=== PATIENT | male | born 1985 ===

== ENCOUNTER → 2025-03-13 13:00 | Outpatient (BNV) | payer OTHER, SELFPAY | PROVIDERS: Visit Provider Internal Medicine | DX: I49.3 Ventricular premature depolarization (principal); R00.0 Tachycardia, unspecified; I49.49 Other premature depolarization | CPT/HCPCS: 93248 ==

== ENCOUNTER → 2025-03-13 13:00 | Outpatient (REF) | payer OTHER, SELFPAY ==
--- NOTE | 2025-03-13 | HM_ITS ---
* Total monitoring time 14 days. * Underlying rhythm is sinus with an average rate of 70/Min. * Rare supraventricular ectopy. * Rare ventricular ectopy. * No significant pauses or high-grade AV blocks. * Irregular heart rate in patient diary correlates with sinus tachycardia, idioventricular rhythm. MTDD
--- OUTSIDE RECORDS SUMMARY | 2025-03-18 18:25 | XMS_ITS | Encounter Summary ---
Author Organization [facility] Address [address] [place] [address] [place] [address] Phone Care Team Providers Care Plumber'S Helper Name Role Phone CyndyNan Colette COLON Primary Care Provider [phone] Encounter Details Date Type Department Care Team (Late st Contact Info) Description 08/01/2023 Prep for Surgery [facility] [address] [place] [address] Vanda Nunez MD [address] [facility], 2nd [place] [address] [email or web address] Mass of anus (Primary Dx) Social History Tobacco Use Types Packs/Day Years Used Date Smoking Tobacco: Never Smokeless Tobacco: Never Alcohol Use Standard Drinks/Week Comments Yes 0 (1 standard drink = 0.6 oz pur e alcohol) 6 Education Answer Date Recorded Are you interested in more education? Not on samantha e 11/19/2022 Are you concerned about learning? Not on file 11/19/2022 No 11/19/2022 No 11/19/2022 Digital Access Answer Date Recorded No 12/18/2022 No 12/18/2022 Reliable internet access at home? Not on file 12/18/2022 Device with a working camera? Not on file Sex and Gender Information Value Date Recorded Sex Assigned at Not on file Legal Sex Male 1:28 PM EST Gender Identity Not on file Sexual Orientation Not on file documented as of this encounter Plan of Treatment Not on file documented as of this encounter Visit Diagnoses Diagnosis Mass of anus- Primary documented in this encounter Care Teams Plumber'S Helper Relationship Specialty Start Date End Date Nan Naylor CNP [address] [place] [address] [email or web address] PCP - General Internal Medicine 05/12/22 documented as of this encounter Additional Source Comments The information contained in this document represents components of the legal health record. It is not the complete legal health record.[facility]
--- OUTSIDE RECORDS SUMMARY | 2025-03-18 18:25 | XMS_ITS | Encounter Summary ---
Author Organization [facility] Address [address] [place] [address] Phone Care Team Providers Care Chemical Lab Technician Name Role Phone Nelly Adame CNP Primary Care Provider [phone] Nan Naylor CNP Primary Care Provider [phone] Encounter Details Date Type Department Care Team (Late st Contact Info) Description 05/11/2022 Transcribe Orders Virtual Department [address] [place] [address] Nan Naylor CNP [address] [place] [address] Upper abdominal pain, unspecified (Primary Dx) Social History Tobacco Use Types Packs/Day Years Used Date Smoking Tobacco: Never Smokeless Tobacco: Never Alcohol Use Standard Drinks/Week Comments Yes 0 (1 standard drink = 0.6 oz pur e alcohol) 6 Sex and Gender Information Value Date Recorded Sex Assigned at Not on file Legal Sex Male 1:28 PM EST Gender Identity Not on file Sexual Orientation Not on file documented as of this encounter Plan of Treatment Not on file documented as of this encounter Results * FL BARIUM SWALLOW ESOPHAGRAM DOUBLE CONTRAST (06/09/2022 9:31 AM EST) Anatomical Region Laterality Modality Chest Computed Radiogr aphy 06/09/2022 10:1 2 AM EST Impressions 06/09/2022 10:16 AM EST No mechanical obstructing lesion or significant hypopharyngeal or esophageal dysmotility. No gross mucosal pathology. Incidental small left lateral pharyngocele. FLUOROSCOPY TIME: 1 min. 26 sec; 74 IMAGES/FRAMES POS - [id number] Narrative 06/09/2022 10:16 AM EST COMPARISON: None FINDINGS: A preliminary lateral view the neck was unremarkable. A standard double contrast study was performed. There was adequate tongue base control and once the swallows were triggered there was one episode of flash undercoating of the distal epiglottis which cleared quickly without overt penetration. No nasopharyngeal reflux or cricopharyngeal achalasia demonstrated. Incidental note is made of a small left lateral pharyngocele. Esophagus displayed normal course, contour, and distensibility. There was slight prolapse of the gastric mucosa during a prone Valsalva maneuver without lower esophageal ring indicative of hiatal hernia demonstrated. No spontaneous reflux, focal stricture, or gross mucosal irregularity demonstrated. Procedure Note Lester Gannon MD - 06/09/2022 COMPARISON: None FINDINGS: A preliminary lateral view the neck was unremarkable. A standard doublecontrast study was performed. There was adequate tongue base control andonce the swallows were triggered there was one episode of flashundercoating of the distal epiglottis which cleared quickly without overtpenetration. No nasopharyngeal reflux or cricopharyngeal achalasiademonstrated. Incidental note is made of a small left lateralpharyngocele. Esophagus displayed normal course, contour, anddistensibility. There was slight prolapse of the gastric mucosa during aprone Valsalva maneuver without lower esophageal ring indicative of hiatalhernia demonstrated. No spontaneous reflux, focal stricture, or grossmucosal irregularity demonstrated. IMPRESSION: No mechanical obstructing lesion or significant hypopharyngeal oresophageal dysmotility. No gross mucosal pathology. Incidental small leftlateral pharyngocele. FLUOROSCOPY TIME: 1 min. 26 sec; 74 IMAGES/FRAMES POS - [id number] us Nan Naylor ACCORDION REPAIRER IMG FL MISC Final Res ult * US ABDOMEN COMPLETE (ADULT) (06/09/2022 8:24 AM EST) Anatomical Region Laterality Modality Abdomen Ultrasound 06/09/2022 12:5 6 PM EST Impressions 06/09/2022 12:58 PM EST 1. Normal abdominal sonography. Narrative 06/09/2022 12:58 PM EST US ABDOMEN COMPLETE (ADULT) TECHNIQUE: Abdominal Ultrasound Complete. COMPARISON: There is no prior study available for comparison FINDINGS: Liver: Normal echogenicity. No focal lesions. Main Portal Vein: Patent with normal direction of flow. Gallbladder: No gallstones or gallbladder wall thickening. Biliary: No intrahepatic or extrahepatic biliary ductal dilatation. The common bile duct measures 3 mm. Pancreas: Incompletely visualized. The visualized portions are within normal limits. Spleen: No splenomegaly. Kidneys: Normal. No stones or hydronephrosis. Aorta: Normal, where visualized sonographically. IVC: Normal intrahepatic segment. Procedure Note Isabella Roberts MD - 06/09/2022 US ABDOMEN COMPLETE (ADULT) TECHNIQUE: Abdominal Ultrasound Complete. COMPARISON: There is no prior study available for comparison FINDINGS: Liver: Normal echogenicity. No focal lesions. Main Portal Vein: Patent with normal direction of flow. Gallbladder: No gallstones or gallbladder wall thickening. Biliary: No intrahepatic or extrahepatic biliary ductal dilatation. The common bile duct measures 3 mm. Pancreas: Incompletely visualized. The visualized portions are withinnormal limits. Spleen: No splenomegaly. Kidneys: Normal. No stones or hydronephrosis. Aorta: Normal, where visualized sonographically. IVC: Normal intrahepatic segment. IMPRESSION: 1. Normal abdominal sonography. Nan Naylor CNP IM US ABDOMEN Final Res ult documented in this encounter Visit Diagnoses Diagnosis Upper abdominal pain, unspecified- Primary Upper abdominal pain, unspecified Upper abdominal pain, unspecified documented in this encounter Care Teams Chemical Lab Technician Relationship Specialty Start Date End Date Nelly Adame CNP [address] [place] [address] [email or web address] PCP - General Family Medicine 08/09/19 05/11/22 Nan Naylor, DARLENE [address] [place] [address] [email or web address] PCP - General Internal Medicine 05/12/22 documented as of this encounter Additional Source Comments The information contained in this document represents components of the legal health record. It is not the complete legal health record.[facility]
--- OUTSIDE RECORDS SUMMARY | 2025-03-18 18:25 | XMS_ITS | Encounter Summary ---
Author Organization [facility] Address [address] [place] [address] Phone Care Team Providers Care Dam Attendant Name Role Phone Nelly Adame CNP Primary Care Provider [phone] Nan Naylor CNP Primary Care Provider [phone] Encounter Details Date Type Department Care Team (Late st Contact Info) Description 08/09/2019 Procedure Pass [facility] Endoscopy Admitting Dept Virtual Department [address] [place] [address] Social History Tobacco Use Types Packs/Day Years [...] documented as of this encounter Visit Diagnoses Not on filedocumented in this encounter Care Teams Dam Attendant Relationship Specialty Start Date End Date Nelly Adame CNP [address] [place] [address] PCP - General Family Medicine 08/09/19 05/11/22 Nan Naylor CNP [address] [place] [address] [email or web address] PCP - General Internal Medicine 05/12/22 documented as of this encounter Additional Source Comments The information contained in this document represents components of the legal health record. It is not the complete legal health record.[facility]
--- OUTSIDE RECORDS SUMMARY | 2025-03-18 18:26 | XMS_ITS | Encounter Summary ---
Author Organization [facility] Address [address] [place] [address] Phone Care Team Providers Care Six Horse Hitch Driver Name Role Phone Nan Naylor CNP Primary Care Provider [phone] Encounter Details Date Type Department Care Team (Late st Contact Info) Description 09/21/2023 Procedure Pass OR Admitting Dept - Virtual Department [address] [place] [address] Social History Tobacco Use Types Packs/Day Years [...] on filedocumented in this encounter Care Teams Six Horse Hitch Driver Relationship Specialty Start Date End Date Nan Naylor CNP [address] [place] [address] [email or web address] PCP - General Internal Medicine 05/12/22 documented as of this encounter Additional Source Comments The information contained in this document represents components of the legal health record. It is not the complete legal health record.[facility]
--- OUTSIDE RECORDS SUMMARY | 2025-03-18 18:26 | XMS_ITS | Clinical Summary ---
Author Organization [facility] Address [address] [place] [address] Phone Care Team Providers Care Jack Winder Name Role Phone CyndyNan Colette COLON Primary Care Provider [phone] Allergies No known active allergies Medications famotidine (PEPCID) 40 MG tablet Take 40 mg by mouth daily. Active iron, ferronyl,-vitam in C 65 mg iron- 125 mg TbEC Take 1 tablet by mouth daily. Active acetaminophen (TYLENOL) 325 mg tablet Take 2 tablets (650 mg total) by mouth every 4 (four) hours as needed. 0 4 Active ibuprofen (ADVIL,MOTRIN) 200 MG tablet Take 2 tablets (400 mg total) by mouth every 6 (six) hours as needed for pain (specific location in comments). Active docusate sodium (COLACE) 100 MG capsule Take 1 capsule (100 mg total) by mouth 2 (two) times a day. 4 Active Additional Information Patient taking differently:100 mg OralAs needed, Reported on 10/05/2023 Active Problems Problem Noted Date Diagnosed Date S/P hemorrhoidectomy 10/05/2023 Diarrhea 07/28/2023 Iron deficiency anemia, unspecified 07/28/2023 Family history of colon cancer 07/28/2023 Gastro-esophageal reflux disease with esophagiti s 07/28/2023 Social History Tobacco Use Types Packs/Day Years Used Date Smoking Tobacco: Never Smokeless Tobacco: Never Tobacco Cessation:Counseling Given: Not Answered Alcohol Use Standard Drinks/Week Comments Yes 0 [...] on file Sexual Orientation Not on file Last Filed Vital Signs Vital Sign Reading Time Taken Comments Blood Pressure 122/72 10/05/2023 11:25 AM EDT Pulse 83 10/05/2023 11:25 AM EDT Temperature 36.3 C (97.3 F) 10/05/2023 11:25 AM EDT Respiratory Rate 16 09/21/2023 10:46 AM EST Oxygen Saturation 99% 10/05/2023 11:25 AM EDT Inhaled Oxygen Concentration - - Weight 108.9 kg (240 lb) 09/21/2023 8:55 AM EST Height 185.4 cm (6' 1 ) 09/21/2023 8:55 AM EST Body Mass Index 31.66 09/21/2023 8:55 AM EST Plan of Treatment Health Maintenance Due Date Last Done Comments Adult Td,Tdap Booster 1986 LIPID PANEL 1986 DEPRESSION SCREENING 1998 HEPATITIS C SCREENING 2004 HIV ONE-TIME SCREENING (18-6 5 YEARS) 2004 SCREENING FOR DIABETES 07/19/2022 07/19/2019 COVID-19 VACCINE (2 - 2023-2 5 season) 2024 11/15/2020 SMOKING STATUS SCREENING (On ce After 26 Yrs) Completed 10/05/2023 HEPATITIS A VACCINES Aged Out No long er eligible based on patient's age to complete this topic HIB VACCINES Aged Out No longer eligi ble based on patient's age to complete this topic MENINGOCOCCAL VACCINES (ACWY) Aged Out No longer eligible based on patient's age to complete this topic MENINGOCOCCAL VACCINES (B) Aged Out N o longer eligible based on patient's age to complete this topic PNEUMOCOCCAL VACCINES (0-49 years) Aged Out No longer eligible based on patient's age to complete this topic Medical Devices Not on file Insurance [employer] TOTAL CHOICE INDEMNITY [employer]ium[employer] TOTAL CHOICE INDEMNITY [employer] TOTAL CHOICE INDEMNITY [employer] TOTAL CHOICE INDEMNITY [employer] TOTAL CHOICE INDEMNITY [employer] TOTAL CHOICE INDEMNITY [employer] TOTAL CHOICE INDEMNITY [employer] TOTAL CHOICE INDEMNITY [employer] [facility] TOTAL CHOICE INDEMNITY Advance Directives For more information, please contact: [phone] (9AM - 5PM [facility], Tuesday-Tuesday) * Full Code (Latest Code Status on File) Date Activated Date Inactivated Comments 09/21/2023 8:47 AM Question Answer Comments Code Status Confirmed With: Patient Care Teams Jack Winder Relationship Specialty Start Date End Date Nan Naylor CNP [address] [place], [place] [address] [place] [address] PCP - General Internal Medicine 05/12/22 Additional Source Comments The information contained in this document represents components of the legal health record. It is not the complete legal health record.[facility]
--- OUTSIDE RECORDS SUMMARY | 2025-03-18 18:26 | XMS_ITS | Encounter Summary ---
Author Organization [facility] Address [address] [place] [address] Phone Care Team Providers Care Advertising Manager Name Role Phone Pcp, Unknown Primary Care Provider Nelly Fiore SERVOMECHANISM DESIGNER Primary Care Provider [phone] Nan Naylor SERVOMECHANISM DESIGNER Primary Care Provider [phone] Encounter Details Date Type Department Care Team (Latest Contact Info) Description 07/19/2019 Transcribe Orders [facility] Laboratory [address] [place] [address] Norma Mclaughlin NP [address] [place] [phone] [email or web address] Rectal bleeding (Primary Dx); Change in bowel habits; Abdominal pain, lower Social History Tobacco Use Types Packs/Day Years Used Date Smoking Tobacco: Never Assessed Sex and Gender Information Value Date Recorded Sex Assigned at Not on file Legal Sex Male 1:28 PM EST Gender Identity Not on file Sexual Orientation Not on file documented as of this encounter Plan of Treatment Not on file documented as of this encounter Results * C-Reactive Protein (07/19/2019 1:32 PM EST) C REACTIVE PROTEIN 0.4 0.0 - 4.0 mg/L [facility] Blood 07/19/2019 1:32 PM EST 07/19/2019 1:35 PM EST us Norma Yenny Arnoldo PRODUCTION MECHANIC TIN CANS LAB BLOOD ORDERABLES Final Result [address] [address] * (ABNORMAL) Comprehensive metabolic panel (07/19/2019 1:32 PM EST) SODIUM 139 133 - 146 mmol/L [facility] POTASSIUM 4.3 3.3 - 5.1 mmol/L [facility] CHLORIDE 98 96 - 108 mmol/L [facility] CO2 27 21 - 35 mmol/L [facility] BUN 8 6 - 19 mg/dL [facility] CREATININE 0.70 0.5 - 1.5 mg/dL [facility] GLUCOSE 90 70 - 99 mg/dL [facility] ALBUMIN 4.9(H) 3.9 - 4.8 g/dL [facility] TOTAL PROTEIN 8.0 6.5 - 8.0 g/dL [facility] CALCIUM 9.6 8.4 - 10.3 mg/dL [facility] ALKALINE PHOSPHATASE 67 39 - 117 U/L [facility] TOTAL BILIRUBIN 0.5 0.0 - 1.2 mg/dL [facility] AST 31 0 - 37 U/L [facility] ALT 25 0 - 40 U/L [facility] GLOBULIN 3.1 1 - 4.8 g/dL [facility] EGFR >120 >59 mL/min/1.7 3m2 [facility] Comment:If patient is black, multiply result by 1.159. Estimated glomerular filtration rate calculated using the CKD-EPI equation. ANION GAP 18 10 - 20 mmol/L [facility] Blood 07/19/2019 1:32 PM EST 07/19/2019 1:35 PM EST Norma Mclaughlin PRODUCTION MECHANIC TIN CANS LAB BLOOD ORDERABLES Final Result [address] [address] * CBC and differential (07/19/2019 1:32 PM EST) WBC 6.33 3.40 - 11.20 K/uL [facility] RBC 5.23 4.50 - 5.50 M/uL [facility] HGB 17.0 13.0 - 17.0 g/dL [facility] HCT 47.6 40.0 - 51.0 % [facility] PLT 296 130 - 400 K/uL [facility] MCV 91.0 79.0 - 98.0 fL [facility] MCH 32.5 27.0 - 34.8 pg [facility] MCHC 35.7 31.5 - 36.0 g/dL [facility] RDW 11.9 10.8 - 14.6 % [facility] MPV 9.9 9.4 - 12.4 fl [facility] NRBC 0.00 0.00 /100 WBCs [facility] ABSOLUTE NRBC 0.00 0.00 K/uL [facility] DIFF METHOD Auto [facility] NEUTS 66.9 45.30 - 77.70 % [facility] LYMPHS 24.2 12.30 - 39.70 % [facility] MONOS 7.6 4.10 - 12.80 % [facility] EOS 0.5 0 - 7.2 % [facility] BASOS 0.5 0 - 2.80 % [facility] Granulocytes, immature (%) 0.3 0.0 - 0.9 % [facility] ABSOLUTE NEUTS 4.24 1.40 - 7.70 K/uL [facility] ABSOLUTE LYMPHS 1.53 0.60 - 3.20 K/uL [facility] ABSOLUTE MONOS 0.48 0.11 - 0.59 K/uL [facility] ABSOLUTE EOS 0.03 0.01 - 0.50 K/uL [facility] ABSOLUTE BASOS 0.03 0.00 - 0.08 K/uL [facility] Granulocytes, immature 0.02 0.00 - 0.05 K/uL [facility] Blood 07/19/2019 1:32 PM EST 07/19/2019 1:35 PM EST us Norma Mclaughlin NP LAB BLOOD ORDERABLES Final Result [facility] [address] [place] [address] * Immunoglobulin A (07/19/2019 1:32 PM EST) IgA 242 70 - 400 mg/dL [facility] Blood 07/19/2019 1:32 PM EST 07/19/2019 1:35 PM EST Norma Mclaughlin PRODUCTION MECHANIC TIN CANS LAB BLOOD ORDERABLES Final Result Performing Organization Address [facility]/ZIP Co de Phone Number [address] [address] * Tissue transglutaminase IgA (07/19/2019 1:32 PM EST) TTG IGA ANTIBODY <1.2 <4.0 (Negative) U/mL [facility] Blood 07/19/2019 1:32 PM EST 07/19/2019 1:36 PM EST Norma Mclaughlin LAB BLOOD ORDERABLES Final Result Performing Organization Address [facility]/[employer]UST Co de Phone Number [facility] [address] [place] [address] documented in this encounter Visit Diagnoses Diagnosis Rectal bleeding- Primary Hemorrhage of rectum and anus Change in bowel habits Other symptoms involving digestive system Abdominal pain, lower Abdominal pain, other specified site documented in this encounter Care Teams Advertising Manager Relationship Specialty Start Date End Date Pcp, Unknown PCP - General 07/19/19 08/08/19 Nelly Adame CNP [address] [place] [address] [email or web address] PCP - General Family Medicine 08/09/19 05/11/22 Nan Naylor CNP [address] [place] [address] PCP - General Internal Medicine 05/12/22 documented as of this encounter Additional Source Comments The information contained in this document represents components of the legal health record. It is not the complete legal health record.[facility]
== END ==
LOC: HO.CARD 13:00
PROVIDERS: Visit Provider Nurse Practitioner
DX: R00.2 Palpitations (principal)
CPT/HCPCS: 93246